=== PATIENT | female | born 2000 | race Hispanic/Latino ===

== ENCOUNTER 2021-03-12 15:37 | Inpatient (IN) | payer OTHER ==
[2021-03-12] VITALS (8 sets, daily range): BP systolic 130–152; BP diastolic 68–92
[~2021-03-12] VITALS: Ht 157.5 cm; Wt 78.5 kg
[2021-03-12] MEDS ORDERED: TUMS750C22 PO (16:08)
[2021-03-12] MEDS ORDERED: PRENTAB9 PO (16:08)
[2021-03-12] MEDS ORDERED: HOME MED LIST COMPLETE! XX SCH (16:10)
[2021-03-12] MEDS ORDERED: LR 1,000 ML IV SCH (17:15)
[2021-03-12] MEDS ORDERED: OXYTOCIN DRIP 30 UNITS in IV 1 EA IV PRN ×4 (17:15)
[2021-03-12] MEDS ORDERED: OXYTOCIN INJ 10 UNITS/ML VIAL (J2590) IV PRN (17:15)
[2021-03-12] MEDS ORDERED: miSOPROStol 50MCG 1/2 TABLET PO ONE ×2 (17:15→21:50)
[2021-03-12] MEDS ORDERED: METHYLERGONOVINE MALEATE 0.2 MG/ML VIAL (J2210) IM PRN (17:15)
[2021-03-12] MEDS ORDERED: LACTATED RINGER'S 1000 ML IV ONE (17:15)
[2021-03-12 17:51] LABS: HEMATOCRIT 36.5 % (36.0-47.0); HEMOGLOBIN 12.7 g/dl (12.0-15.5); MEAN CORPUSCULAR HEMOGLOBIN 29.3 pg (27.0-33.0); MEAN CORPUSCULAR HGB CONC 34.8 g/dl (32.0-36.5); MEAN CORPUSCULAR VOLUME 84.1 fl (80.0-96.0); PLATELET COUNT, AUTOMATED 209 10^3/uL (150-450); RED BLOOD COUNT 4.34 10^6/uL (4.00-5.40); WHITE BLOOD COUNT 8.8 10^3/uL (4.0-10.0)
[2021-03-12 18:10] LABS: APPEARANCE, URINE CLEAR (CLEAR); BACTERIA, URINE AUTO NEGATIVE (NEGATIVE); BILIRUBIN, URINE AUTO NEGATIVE (NEGATIVE); BLOOD, URINE BLOOD NEGATIVE (NEGATIVE); COLOR, URINE YELLOW (YELLOW); GLUCOSE, URINE (UA) AUTO NEGATIVE (NEGATIVE); KETONE, URINE AUTO NEGATIVE (NEGATIVE); LEUKOCYTE ESTERASE, URINE AUTO NEGATIVE (NEGATIVE); MUCUS, URINE SMALL (NEGATIVE); NITRITE, URINE AUTO NEGATIVE (NEGATIVE); PROTEIN, URINE AUTO NEGATIVE (NEGATIVE); RBC, URINE AUTO 0 /HPF (0-3); SPECIFIC GRAVITY URINE AUTO 1.006 (1.002-1.035); SQUAMOUS EPITHELIAL CELL UR AU 3 /HPF (0-6); UROBILINOGEN, URINE AUTO 0.2 mg/dL (0.0-2.0); WBC, URINE AUTO 1 /HPF (0-3)
[2021-03-12 18:12] LABS: CREATININE,RANDOM URINE 48.9 MG/DL; TOTAL PROTEIN,RANDOM URINE 11.8 MG/DL (0.0-12.0)
[2021-03-12 18:15] LABS: ALT/SGPT 23 U/L (12-78); BILIRUBIN,TOTAL 0.2 MG/DL (0.2-1.0); CREATININE FOR GFR 0.77 MG/DL (0.55-1.30); LDH LACTATE DEHYDROGENASE 184 U/L (84-246); URIC ACID 5.4 MG/DL (2.6-6.0)
[2021-03-13] VITALS (24 sets, daily range): BP systolic 121–162; BP diastolic 65–93
[2021-03-13] MEDS ORDERED: AZITHROMYCIN INJ 500 MG, VIAL MATE ADAPTER 1 EACH in NS 250 ML IV ONE (11:10)
[2021-03-13] MEDS ORDERED: ceFAZolin SOD 2 GM in IV 1 EA IV ONE (11:10)
[2021-03-13] MEDS ORDERED: BICITRA 30ML SOLN UDC PO ONE (11:15)
[2021-03-13] MEDS ORDERED: ceFAZolin 2 GM/D5W 50 ML IV BAG (J0690 PER 500MG) As Ordered ONE (11:15)
[2021-03-13] MEDS ORDERED: AZITHROMYCIN INJ 500MG VIAL As Ordered ONE (11:16)
[2021-03-13] MEDS ORDERED: BICITRA 30ML SOLN UDC As Ordered ONE (11:16)
[2021-03-13] MEDS ORDERED: METOCLOPRAMIDE INJ 10MG/2ML VIAL (J2765 PER 1) IV PRN ×2 (11:38→13:20)
[2021-03-13] MEDS ORDERED: ONDANSETRON 4MG/2ML VIAL IV PRN ×3 (11:38→13:20)
[2021-03-13] MEDS ORDERED: NALBUPHINE HCL 10 MG/ML AMP (J2300) IV PRN (11:38)
[2021-03-13] MEDS ORDERED: diphenhydrAMINE 50MG/ML VIAL (J1200) IV PRN (11:38)
[2021-03-13] MEDS ORDERED: NALOXONE INJ 0.4MG/1ML VIAL (J2310 PER 1MG) IV PRN ×2 (11:38)
[2021-03-13] MEDS ORDERED: MORPHINE PRES-FREE INJ 10 MG/10 ML VIAL (J2274) As Ordered ONE (11:54)
[2021-03-13] MEDS ORDERED: ONDANSETRON 4MG/2ML VIAL As Ordered ONE (11:54)
[2021-03-13] MEDS ORDERED: OXYTOCIN 30 UNITS IN 0.9% NaCl 500ML IV BAG (J2590) As Ordered ONE ×2 (11:54→13:06)
[2021-03-13] MEDS ORDERED: dexameTHASONE 4 MG/ML 1ML VIAL (J1100 PER 1MG) As Ordered ONE (11:58)
[2021-03-13] MEDS ORDERED: ePHEDrine SULFATE 25 MG/5 ML(5MG/ML) SYRINGE As Ordered ONE (11:58)
[2021-03-13] MEDS ORDERED: KETOROLAC 60MG 2ML VIAL As Ordered ONE (12:04)
[2021-03-13 12:26] LABS: CORD GAS ABE V -2.9; CORD GAS HCO3 V 23.3 MEQ/L; CORD GAS O2 SAT V 56.9 %; CORD GAS PH V 7.323 UNITS; CORD GAS PO2 V 26.1 mmHg; CORD GAS SBC V 21.1 MEQ/L; CORD GAS TCO2 V 24.7 MEQ/L
[2021-03-13 12:30] LABS: CORD GAS ABE A -3.1; CORD GAS HCO3 A 24.9 MEQ/L; CORD GAS O2 SAT A 27.4 %; CORD GAS PCO2 A 57.4 mmHg; CORD GAS PH A 7.256 UNITS; CORD GAS PO2 A 16.2 mmHg; CORD GAS SBC A 20.3 MEQ/L; CORD GAS TCO2 A 26.7 MEQ/L
[2021-03-13] MEDS ORDERED: MORPHINE 2 MG/ML 1ML VIAL (J2270) IV PRN (13:00)
[2021-03-13] MEDS ORDERED: RHOGAM 300 MCG (1500 IU) INJ (J2790) IM SCH (13:00)
[2021-03-13] MEDS ORDERED: MEASLES,MUMPS,RUBELLA VACCINE INJ (MMR-II) (90707) SC SCH (13:00)
[2021-03-13] MEDS ORDERED: SIMETHICONE 80MG CHEW TAB PO PRN (13:00)
[2021-03-13] MEDS ORDERED: PROMETHAZINE 25 MG TAB PO PRN (13:00)
[2021-03-13] MEDS ORDERED: oxyCODONE 5MG TAB PO PRN ×2 (13:00)
[2021-03-13] MEDS ORDERED: PERCOCET 5MG/325MG TAB PO PRN (13:20)
[2021-03-13] MEDS ORDERED: LR 1,000 ML IV SCH (13:20)
[2021-03-13] MEDS ORDERED: fentaNYL 100 MCG/2 ML INJECTION IV PRN (13:20)
[2021-03-13] MEDS ORDERED: OXYTOCIN DRIP 30 UNITS in IV 1 EA IV SCH ×2 (13:30→14:00)
[2021-03-13] MEDS ORDERED: hydrALAZINE 20MG/ML 1ML VIAL (J0360 PER 20MG) IV STA (14:10)
[2021-03-13] MEDS ORDERED: hydrALAZINE 20MG/ML 1ML VIAL (J0360 PER 20MG) As Ordered ONE (14:14)
[2021-03-13] MEDS ORDERED: CALCIUM GLUCONATE 1,000 MG in D5W MINI-BAG PLUS 100 ML IV PRN (14:45)
[2021-03-13] MEDS ORDERED: hydrALAZINE 20MG/ML 1ML VIAL (J0360 PER 20MG) IV ONE (15:00)
[2021-03-13] MEDS ORDERED: MAG Sulf (L&D) 4 GM/100 ML 4 GM in IV 1 EA IV ONE (15:00)
[2021-03-13] MEDS: MAG Sulf (OBGYN) 20GM/500ML 20,000 MG in IV 1 EA IV SCH (16:06)
[2021-03-13] MEDS: ACETAMINOPHEN 500 MG TAB PO SCH ×2 (16:56→20:48)
[2021-03-13] MEDS: LR 1,000 ML IV SCH (17:50)
[2021-03-13] MEDS: KETOROLAC 30 MG/ML 1ML VIAL IV SCH (18:44)
[2021-03-13] MEDS: DOCUSATE SODIUM 100MG CAPSULE PO SCH (20:48)
[2021-03-14] VITALS (13 sets, daily range): BP systolic 119–135; BP diastolic 62–84
[2021-03-14] MEDS: MAG Sulf (OBGYN) 20GM/500ML 20,000 MG in IV 1 EA IV SCH (00:48)
[2021-03-14] MEDS: KETOROLAC 30 MG/ML 1ML VIAL IV SCH ×2 (00:48→06:40)
[2021-03-14] MEDS: ACETAMINOPHEN 500 MG TAB PO SCH ×4 (03:00→20:13)
[2021-03-14] MEDS: LR 1,000 ML IV SCH (07:21)
[2021-03-14 08:42] LABS: HEMATOCRIT 36.3 % (36.0-47.0); HEMOGLOBIN 12.4 g/dl (12.0-15.5); MEAN CORPUSCULAR HEMOGLOBIN 28.6 pg (27.0-33.0); MEAN CORPUSCULAR HGB CONC 34.2 g/dl (32.0-36.5); MEAN CORPUSCULAR VOLUME 83.8 fl (80.0-96.0); PLATELET COUNT, AUTOMATED 210 10^3/uL (150-450); RED BLOOD COUNT 4.33 10^6/uL (4.00-5.40); WHITE BLOOD COUNT 17.9 10^3/uL (4.0-10.0)
[2021-03-14] MEDS: PRENATAL VITAMINS CHEWABLE TABLET PO SCH (08:44)
[2021-03-14] MEDS: DOCUSATE SODIUM 100MG CAPSULE PO SCH ×2 (08:44→20:13)
[2021-03-14] MEDS ORDERED: PRENATAL VITAMINS CHEWABLE TABLET PO SCH (09:00)
[2021-03-14] MEDS: IBUPROFEN 800 MG TAB PO SCH ×2 (15:24→23:21)
[2021-03-14] MEDS ORDERED: IBUP80TA PO (15:30)
[2021-03-14] MEDS ORDERED: ACET-683 PO (15:30)
[2021-03-14] MEDS ORDERED: OXYC-517 PO (15:30)
[2021-03-14] MEDS ORDERED: COLA100C5 PO (15:30)
[2021-03-15 02:00] VITALS: BP 139/79
[2021-03-15] MEDS: ACETAMINOPHEN 500 MG TAB PO SCH ×2 (04:12→08:56)
[2021-03-15 06:00] VITALS: BP 137/61
[2021-03-15] MEDS: IBUPROFEN 800 MG TAB PO SCH (07:19)
[2021-03-15] MEDS: DOCUSATE SODIUM 100MG CAPSULE PO SCH (08:56)
[2021-03-15] MEDS: PRENATAL VITAMINS CHEWABLE TABLET PO SCH (08:56)
== END 2021-03-15 12:53 | disposition home or self-care (01) | DRG 773 ==
LOC: M LDI 15:37 → M OBS 03-14 10:58
PROVIDERS: ADMIT Obstetrics & Gynecology; ATTEND Obstetrics & Gynecology
PROC: 3E0DXGC Introduction of Other Therapeutic Substance into Mouth and Pharynx, External Approach (ICD-10-PCS; 2021-03-12)
PROC: 10D00Z1 Extraction of Products of Conception, Low, Open Approach (ICD-10-PCS; principal; 2021-03-13 11:31)
DX: O14.14 Severe pre-eclampsia complicating childbirth (principal); Z37.0 Single live birth; Z3A.37 37 weeks gestation of pregnancy; O76 Abnormality in fetal heart rate and rhythm complicating labor and delivery

== ENCOUNTER → 2022-09-14 | Outpatient (CLI) | payer OTHER ==
[~2022-09-14] MED LIST: ACET-683 PO; COLA100C5 PO; IBUP80TA PO; OXYC-517 PO; PRENTAB9 PO; TUMS750C22 PO
== END ==
LOC: M WHC 15:26
DX: N63.10 Unspecified lump in the right breast, unspecified quadrant (principal)

== ENCOUNTER 2022-11-22 11:34 | Emergency (ER) | payer OTHER ==
[~2022-11-22] VITALS: Ht 157.5 cm; Wt 67.2 kg
[2022-11-22] MEDS ORDERED: ASPI81CH33 PO (12:06)
[2022-11-22 16:40] VITALS: BP 120/56; TEMP 98; O2SAT 100
== END 2022-11-22 16:45 | disposition home or self-care (01) ==
LOC: M ED 11:34
DX: O26.91 Pregnancy related conditions, unspecified, first trimester (principal); H61.22 Impacted cerumen, left ear; I10 Essential (primary) hypertension; Z79.810 Long term (current) use of selective estrogen receptor modulators (SERMs); Z79.82 Long term (current) use of aspirin; Z3A.12 12 weeks gestation of pregnancy

== ENCOUNTER → 2023-03-29 | Outpatient (CLI) | payer OTHER ==
[~2023-03-29] MED LIST changes: +ASPI81CH33 PO
== END ==
LOC: M WHC 13:04
PROVIDERS: ATTEND Emergency Medicine
DX: L72.3 Sebaceous cyst (principal); N63.10 Unspecified lump in the right breast, unspecified quadrant; N64.59 Other signs and symptoms in breast

== ENCOUNTER 2023-05-11 12:37 | Outpatient (CLI) | payer OTHER ==
[~2023-05-11] VITALS: Ht 157.5 cm; Wt 77.2 kg
== END 2023-05-11 13:22 | disposition home or self-care (01) ==
LOC: M LDO 12:37
PROVIDERS: ATTEND Advanced Practice Midwife
DX: O36.8130 Decreased fetal movements, third trimester, not applicable or unspecified (principal); Z3A.36 36 weeks gestation of pregnancy; O26.893 Other specified pregnancy related conditions, third trimester; R00.2 Palpitations; O34.219 Maternal care for unspecified type scar from previous cesarean delivery
CPT/HCPCS: 59025; 76815; G0463

== ENCOUNTER 2023-06-07 15:30 | Outpatient (CLI) | payer OTHER ==
[~2023-06-07] VITALS: Ht 157.5 cm; Wt 76.4 kg
== END 2023-06-07 16:31 | disposition home or self-care (01) ==
LOC: M LDO 15:30
PROVIDERS: ATTEND Obstetrics & Gynecology
DX: O47.1 False labor at or after 37 completed weeks of gestation (principal); O34.219 Maternal care for unspecified type scar from previous cesarean delivery; Z3A.40 40 weeks gestation of pregnancy; Z87.59 Personal history of other complications of pregnancy, childbirth and the puerperium; Z79.82 Long term (current) use of aspirin
CPT/HCPCS: 59025; G0463

== ENCOUNTER 2023-06-09 09:47 | Outpatient (CLI) | payer OTHER ==
[~2023-06-09] VITALS: Ht 157.5 cm; Wt 76.0 kg
[2023-06-09 10:01] VITALS: BP 131/72
== END 2023-06-09 10:45 | disposition home or self-care (01) ==
LOC: M LDO 09:47
PROVIDERS: ATTEND Obstetrics & Gynecology
DX: O47.1 False labor at or after 37 completed weeks of gestation (principal); O34.219 Maternal care for unspecified type scar from previous cesarean delivery; Z3A.40 40 weeks gestation of pregnancy; Z79.82 Long term (current) use of aspirin
CPT/HCPCS: 59025; G0463

== ENCOUNTER 2023-06-10 14:15 | Outpatient (CLI) | payer OTHER ==
[~2023-06-10] VITALS: Ht 157.5 cm; Wt 75.2 kg
[2023-06-10 14:35] VITALS: BP 117/64
[2023-06-10] MEDS ORDERED: HOME MED LIST COMPLETE! XX SCH (14:40)
== END 2023-06-10 15:54 | disposition home or self-care (01) ==
LOC: M LDO 14:15
PROVIDERS: ATTEND Obstetrics & Gynecology
DX: O47.1 False labor at or after 37 completed weeks of gestation (principal); O34.219 Maternal care for unspecified type scar from previous cesarean delivery; Z3A.40 40 weeks gestation of pregnancy; Z79.82 Long term (current) use of aspirin
CPT/HCPCS: 59025; 76815; G0463

== ENCOUNTER 2023-06-11 07:25 | Inpatient (IN) | payer OTHER ==
[~2023-06-11] VITALS: Ht 157.5 cm; Wt 74.8 kg
[2023-06-11] VITALS (41 sets, daily range): BP systolic 110–152; BP diastolic 56–94
[2023-06-11] MEDS ORDERED: HOME MED LIST COMPLETE! XX SCH (08:20)
[2023-06-11 08:32] LABS: HEMATOCRIT 41.1 % (36.0-47.0); HEMOGLOBIN 14.3 g/dl (12.0-15.5); MEAN CORPUSCULAR HEMOGLOBIN 28.7 pg (27.0-33.0); MEAN CORPUSCULAR HGB CONC 34.8 g/dl (32.0-36.5); MEAN CORPUSCULAR VOLUME 82.4 fl (80.0-96.0); PLATELET COUNT, AUTOMATED 184 10^3/uL (150-450); RED BLOOD COUNT 4.99 10^6/uL (4.00-5.40); WHITE BLOOD COUNT 10.3 10^3/uL (4.0-10.0)
[2023-06-11] MEDS ORDERED: OXYTOCIN INJ 10UNITS/ML 1ML VIAL IM PRN (08:35)
[2023-06-11] MEDS ORDERED: LIDOCAINE 1% MDV 20ML VIAL INFIL PRN (08:35)
[2023-06-11] MEDS ORDERED: CARBOPROST TROMETHAMINE 250 MCG/ML AMP IM PRN (08:35)
[2023-06-11] MEDS ORDERED: LR 1,000 ML IV SCH (08:35)
[2023-06-11] MEDS ORDERED: OXYTOCIN DRIP 30 UNITS in IV 1 EA IV PRN ×3 (08:35)
[2023-06-11] MEDS ORDERED: TRANEXAMIC ACID INJection 1,000 MG in NS 100 ML IV PRN (08:35)
[2023-06-11] MEDS ORDERED: METHYLERGONOVINE MALEATE 0.2MG/ML 1ML VIAL IM PRN (08:35)
[2023-06-11] MEDS: PROMETHAZINE 25MG/ML 1ML VIAL IV ONE (09:51)
[2023-06-11] MEDS: NALBUPHINE HCL 1MG/0.1ML (100MG/10ML) MDV IV PRN (09:52)
[2023-06-11] MEDS: D5W/LR 1,000 ML IV ONE (10:25)
[2023-06-11] MEDS: LR 1,000 ML IV SCH ×2 (10:37→19:15)
[2023-06-11] MEDS: OXYTOCIN DRIP 30 UNITS in IV 1 EA IV SCH ×3 (10:37→20:19)
[2023-06-11] MEDS ORDERED: FENTANYL 2MCG/ML ROPIVACAINE 0.2% IN 0.9% NACL 100ML IVBAG As Ordered ONE (14:24)
[2023-06-11] MEDS ORDERED: EPIDURAL/PCA KEYS XX PRN (14:25)
[2023-06-11] MEDS ORDERED: LR 500 ML IV PRN (14:25)
[2023-06-11] MEDS ORDERED: diphenhydrAMINE 50MG/ML VIAL IV PRN (14:25)
[2023-06-11] MEDS ORDERED: ONDANSETRON 4MG 2ML VIAL IV PRN (14:25)
[2023-06-11] MEDS ORDERED: NALOXONE INJ 0.4MG/1ML VIAL IV PRN (14:25)
[2023-06-11] MEDS ORDERED: ePHEDrine SULFATE 25 MG/5 ML(5MG/ML) SYRINGE IVP PRN (14:25)
[2023-06-11] MEDS: LACTATED RINGER'S 1000 ML IV STA (14:39)
[2023-06-11] MEDS: FENTANYL/ROPIVACAINE/NACL BAG 100 ML EPIDURAL SCH (14:50)
[2023-06-11] MEDS ORDERED: METOCLOPRAMIDE INJ 10MG/2ML VIAL IV PRN (19:15)
[2023-06-11] MEDS ORDERED: RHOGAM 300MCG (1500IU) INJ IM SCH (19:15)
[2023-06-11] MEDS ORDERED: DIBUCAINE 1% OINTMENT 30GM TOP PRN (19:15)
[2023-06-11] MEDS ORDERED: ACETAMINOPHEN TAB 650MG DOSE (2X325MG) PO PRN (19:15)
[2023-06-11] MEDS ORDERED: IBUPROFEN 600MG TAB PO PRN (19:15)
[2023-06-11] MEDS ORDERED: METHYLERGONOVINE MALEATE 0.2 MG TAB PO PRN (19:15)
[2023-06-11] MEDS ORDERED: MOM 30ML SUSPENSION UDC PO PRN (19:15)
[2023-06-11] MEDS ORDERED: DOCUSATE SODIUM 100MG CAPSULE PO PRN (19:15)
[2023-06-11] MEDS: ACETAMINOPHEN 500 MG TAB PO PRN (21:37)
[2023-06-12 05:37] VITALS: BP 125/63
[2023-06-12 06:36] LABS: HEMATOCRIT 40.5 % (36.0-47.0); HEMOGLOBIN 13.8 g/dl (12.0-15.5); MEAN CORPUSCULAR HEMOGLOBIN 28.5 pg (27.0-33.0); MEAN CORPUSCULAR HGB CONC 34.1 g/dl (32.0-36.5); MEAN CORPUSCULAR VOLUME 83.5 fl (80.0-96.0); PLATELET COUNT, AUTOMATED 178 10^3/uL (150-450); RED BLOOD COUNT 4.85 10^6/uL (4.00-5.40); WHITE BLOOD COUNT 13.4 10^3/uL (4.0-10.0)
[2023-06-12 07:11] LABS: LDH LACTATE DEHYDROGENASE 328 U/L (120-246)
[2023-06-12 07:12] LABS: ALT/SGPT 23 U/L (7.0-40); AST/SGOT 40 U/L (<34); BILIRUBIN,TOTAL 1.2 MG/DL (0.3-1.2); CREATININE FOR GFR 0.68 MG/DL (0.55-1.30); GLOMERULAR FILTRATION RATE > 60.0 (>60)
[2023-06-12] MEDS: PRENATAL VITAMINS CHEWABLE TABLET PO SCH (07:31)
[2023-06-12] MEDS ORDERED: PRENATAL VITAMINS CHEWABLE TABLET PO SCH (09:00)
[2023-06-12] MEDS: IBUPROFEN 800 MG TAB PO PRN (13:19)
[2023-06-12 18:00] VITALS: BP 133/71; O2SAT 97
[2023-06-13 06:00] VITALS: BP 113/69; O2SAT 98
[2023-06-13] MEDS: MEASLES,MUMPS,RUBELLA VACCINE INJ (MMR-II) SC.IMMUN ONE (07:42)
[2023-06-13 11:30] VITALS: BP 129/66
== END 2023-06-13 11:40 | disposition home or self-care (01) | DRG 807 ==
LOC: M LDI 07:25 → M OBS 21:45
PROVIDERS: ADMIT Obstetrics & Gynecology; ATTEND Obstetrics & Gynecology
PROC: 10E0XZZ Delivery of Products of Conception, External Approach (ICD-10-PCS; principal; 2023-06-11)
PROC: 0KQM0ZZ Repair Perineum Muscle, Open Approach (ICD-10-PCS; 2023-06-11)
PROC: 10907ZC Drainage of Amniotic Fluid, Therapeutic from Products of Conception, Via Natural or Artificial Opening (ICD-10-PCS; 2023-06-11)
PROC: 3E033VJ Introduction of Other Hormone into Peripheral Vein, Percutaneous Approach (ICD-10-PCS; 2023-06-11)
DX: O48.0 Post-term pregnancy (principal); Z37.0 Single live birth; Z3A.40 40 weeks gestation of pregnancy; O34.211 Maternal care for low transverse scar from previous cesarean delivery; O32.6XX0 Maternal care for compound presentation, not applicable or unspecified; O70.1 Second degree perineal laceration during delivery; O36.0190 Maternal care for anti-D [Rh] antibodies, unspecified trimester, not applicable or unspecified